=== PATIENT | female | born 1975 | race Caucasian/White ===

== ENCOUNTER 2023-06-29 16:08 | Emergency (ER) | payer OTHER, SELFPAY ==
[2023-06-29 16:12] VITALS: BP 144/116
[2023-06-29 16:43] LABS: % Basophils 0.9 % (0-2); % Eosinophils 3.4 % (0-6); % Immature Granulocytes 0.1 % (0-0.5); % Lymphocytes 35.1 % (20.5-51.1); % Monocytes 7.7 % (1.7-9.3); % Neutrophils 52.8 % (42.2-75.2); Absolute Basophils 0.1 10^3/uL (0-0.2); Absolute Eosinophils 0.3 10^3/uL (0-0.7); Absolute Lymphocytes 2.6 10^3/uL (1.2-3.4); Absolute Monocytes 0.6 10^3/uL (0.1-0.6); Absolute Neutrophils 3.9 10^3/uL (1.4-6.5); Hematocrit 35.7 % (37.0-47.0); Hemoglobin 11.9 g/dL (12.0-16.0); Mean Corp Hgb Conc. 33.3 g/dL (33.0-37.0); Mean Corpuscular Hgb 30.4 pg (27.0-31.0); Mean Corpuscular Volume 91.3 fL (81.0-99.0); Mean Platelet Volume 8.8 fL (7.4-10.4); Nucleated Red Blood Cells % 0 %; Platelet Count 404 10^3/uL (130-400); Red Blood Cell Count 3.91 10^6/uL (4.20-5.40); Red Cell Dist. Width 15.4 % (11.5-14.5); White Blood Cell Count 7.4 10^3/uL (4.8-10.8)
[2023-06-29 16:52] LABS: HCG, Serum Qualitative Screen Negative
[2023-06-29 16:57] LABS: ALT (SGPT) 18 U/L (0-35); AST (SGOT) 27 U/L (14-36); Acetaminophen < 10 ug/ml (10-30); Albumin 4.4 g/dl (3.5-5.0); Alkaline Phosphatase 91 U/L (38-126); Blood Urea Nitrogen 10 mg/dl (7-17); Calcium 10.6 mg/dl (8.4-10.2); Carbon Dioxide 19 mmol/L (22-30); Glucose 88 mg/dl (70-99); Salicylate < 1.0 mg/dl (2.0-20.0); Total Bilirubin 0.3 mg/dl (0.2-1.3); Total Protein 7.1 g/dl (6.3-8.2); eGFR > 60.00
[2023-06-29 17:02] LABS: Chloride 112 mmol/L (98-107); Potassium 4.1 mmol/L (3.5-5.1); Sodium 138 mmol/L (135-145)
== END 2023-06-29 20:52 ==
LOC: EMR 16:08
PROVIDERS: Emergency Medicine
DX: R47.81 Slurred speech (principal); Z53.21 Procedure and treatment not carried out due to patient leaving prior to being seen by health care provider
CPT/HCPCS: 80053; 80143; 80179; 84703; 85025

== ENCOUNTER 2023-06-30 11:02 | Emergency (ER) | payer OTHER, SELFPAY ==
[2023-06-30 11:14] VITALS: BP 156/92
--- NOTE | 2023-06-30 11:40 | EDRN ---
Dr. Vargas in room w/pt at this time.
[2023-06-30] MEDS: ATIVAN 1 MG PO (11:59)
--- NOTE | 2023-06-30 12:15 | ED.GENMED ---
History of Present Illness
General
Chief Complaint: Headache
Source: patient and significant other
Exam Limitations: none
Time Seen by Provider: 06/30/23 11:25
Nursing documentation reviewed up to this point in time: agreed with
Travel History
Have you had any contact with someone who has COVID-19?: No
Do you have any symptoms of coronavirus? Fever > 100 degrees, chills, cough, shortness of breath, sore throat, loss of taste or smell, muscle aches, or headache?: No
History of Present Illness
History of Present Illness:
48 female history of anxiety prior history of substance abuse possible seizure disorder hold on Depakote admittedly noncompliant presents with anxiety, apparently her boyfriend found her on the ground between 2 chairs after presumed fall 2 nights
ago seen here in the ER waiting room last night apparently the wait was long she went home she has a headache she is tearful she feels anxious he is seeing a psychiatrist yamilex Cordova apparently there is some stress between the patient and her mother
who she lives with
Past History
Past History
ED Past Medical History: Valvular disease, Psychiatric (anxiety, ADHD, substance abuse) and Other (Chronic back pain)
ED Past Surgical History: (x2)
Social History
Tobacco: Smoker
Alcohol: None
Drug: None and Other (pt denies)
Personal:
Living: alone
Employment: Employed (dental equal opportunity assistant)
Family History
Family History: Other (reviewed and non-contributory)
Review of Systems
Review of Systems
All Other Systems: Not applicable
Constitutional: Denies fever
EENT: Reports no symptoms
Respiratory: Reports no symptoms
Cardiac: Reports no symptoms
ABD/GI: Reports no symptoms
Neurological: Reports headache
Psychiatric: Reports depression and anxiety; Denies suicidal
Phy Exam
Physical Exam
Physical Exam:
Physical Exam
General: no apparent distress, not acutely ill
Neck: Tearful at times
Heart: s1/s2 regular rate and rhythm, no murmur. equal radial pulses.
Lungs: no acute respiratory distress. clear bilaterally
Abdomen: Not
Neuro: alert and oriented. no focal neurological deficits
Skin: no rash
Psychiatric: Anxious tearful denies suicidal or homicidal thoughts
Extremities: no edema.
Course
Orders/Labs/Results
Orders:
Orders
06/30/23 11:50
Lorazepam [Ativan] 1 mg PO NOW STA
06/30/23 11:51
Crisis Consult Routine
Reason for Consult: anxiety
06/30/23 12:13
CT Cervical Spine W/o Iv Contr Urgent
Comment:
Reason For Exam: fall trauma
CT Head W/o Iv Contrast Urgent
Comment:
Reason For Exam: trauma headache
06/30/23 12:26
Complete Blood Count/With Diff Urgent
Comprehensive Metabolic Panel Urgent
Depakane Urgent
Abnormal Lab Results
06/30/23
12:26
RBC 3.53 L 10^6/uL
(4.20-5.40)
Hgb 10.9 L g/dL
(12.0-16.0)
Hct 32.6 L %
(37.0-47.0)
RDW 15.3 H %
(11.5-14.5)
Plt Count 405 H 10^3/uL
(130-400)
Monocytes % 9.4 H %
(1.7-9.3)
Chloride 111 H mmol/L
(98-107)
Glucose 107 H mg/dl
(70-99)
Calcium 10.3 H mg/dl
(8.4-10.2)
Total Bilirubin 0.1 L mg/dl
(0.2-1.3)
Total Protein 6.1 L g/dl
(6.3-8.2)
Valproic Acid < 10.0 L ug/ml
(50.0-120.0)
06/30/23 12:26
06/30/23 12:26
Vital Signs
Initial and Last Documented VS:
Initial Vital Signs
Temp Pulse Resp BP Pulse Ox
98.1 F 98 16 156/92 99
06/30/23 11:14 06/30/23 11:14 06/30/23 11:14 06/30/23 11:14 06/30/23 11:14
Last Documented Vital Signs
Temp Pulse Resp BP Pulse Ox
98.1 F 85 16 122/63 99
06/30/23 11:14 06/30/23 13:42 06/30/23 13:42 06/30/23 13:42 06/30/23 13:42
MDM/Problems Addressed
Differential Diagnosis Includes:
Intoxication withdrawal, primary psychiatric: Head or neck trauma electrolyte abnormality
MDM/Problems Addressed:
Anxiety fall
Chronic conditions affecting care:
Mental illness seizure disorder chronic pain
Acute Exacerbation and/or Progression of Chronic Illness:
None ordered seizure disorder chronic pain
*Critical Care Note
Total Time (30-74mins, 75-104mins- exclusive of procedures): Not Applicable
Update Note
Update Note:
1:20 PM labs noted imaging is pending, reviewed with crisis, patient recently started [facility] intensive outpatient she will continue that
ED Attending Note
-
Portions of this chart may have been created with voice recognition software.� Occasional wrong word or��sound alike� substitutions may have occurred due to the inherent limitations of voice recognition software.
Discharge Plan
Departure
Patient Disposition: Home (Routine Discharge)
Date of Disposition: 06/30/23
Time of Disposition: 13:19
Patient with high blood pressure during this ER visit?: No
Condition: Good
Discharge Problem:
Fall, Anxiety
Instructions: Generalized anxiety disorder, Preventing falls in adults
Prescriptions:
New
lorazepam [Ativan] 1 mg tablet
1 mg PO BID PRN (Reason: anxiety) Qty: 5 0RF
No Action
paroxetine HCl 20 MG tablet
40 mg PO DAILY
nicotine 14 MG patch 24 hour
14 mg transdermal DAILY 0RF
hydrocodone-acetaminophen 1 TABLET tablet
1 tab PO Q4HPRN PRN (Reason: severe pain) Qty: 20 0RF
valproic acid 250 MG capsule
500 mg PO HS Qty: 30 0RF
rizatriptan 10 MG tablet,disintegrating
10 mg PO DAILY PRN (Reason: headache) Qty: 9 0RF
Referrals:
Mart Maya MD [Family Provider] - Next open appointment
Activity Restrictions/Additional Instructions:
Take your prescribed medications as prescribed, including your Depakote
Follow-up with your primary care provider and your psychiatrist
Interventions
Interventions:
*Risk Screen - Suicide Last Done: 06/30/23 11:14
*General Assessment Last Done: 06/30/23 11:14
*Neglect/Abuse Screening Last Done: 06/30/23 11:14
ED- Fall Risk Assessment Last Done: 06/30/23 12:31
*ED COVID-19 Vaccine History Last Done: 06/30/23 12:31
*Nursing Disposition Last Done: 06/30/23 13:43
ED- Neurological Assessment Last Done: 06/30/23 12:31
Discharge Date and Time
Discharge Date/Time: 06/30/23 13:49
Print Language: GERMAN
[2023-06-30 12:31] VITALS: BP 129/91; BMI 29.9
[2023-06-30 12:33] LABS: % Basophils 1.6 % (0-2); % Eosinophils 4.1 % (0-6); % Immature Granulocytes 0.2 % (0-0.5); % Lymphocytes 34.9 % (20.5-51.1); % Monocytes 9.4 % (1.7-9.3); % Neutrophils 49.8 % (42.2-75.2); Absolute Basophils 0.1 10^3/uL (0-0.2); Absolute Eosinophils 0.2 10^3/uL (0-0.7); Absolute Monocytes 0.5 10^3/uL (0.1-0.6); Absolute Neutrophils 2.8 10^3/uL (1.4-6.5); Hematocrit 32.6 % (37.0-47.0); Hemoglobin 10.9 g/dL (12.0-16.0); Mean Corp Hgb Conc. 33.4 g/dL (33.0-37.0); Mean Corpuscular Hgb 30.9 pg (27.0-31.0); Mean Corpuscular Volume 92.4 fL (81.0-99.0); Mean Platelet Volume 8.8 fL (7.4-10.4); Nucleated Red Blood Cells % 0 %; Platelet Count 405 10^3/uL (130-400); Red Blood Cell Count 3.53 10^6/uL (4.20-5.40); Red Cell Dist. Width 15.3 % (11.5-14.5); White Blood Cell Count 5.6 10^3/uL (4.8-10.8)
[2023-06-30 12:48] LABS: ALT (SGPT) 16 U/L (0-35); AST (SGOT) 22 U/L (14-36); Alkaline Phosphatase 83 U/L (38-126); Blood Urea Nitrogen 14 mg/dl (7-17); Calcium 10.3 mg/dl (8.4-10.2); Chloride 111 mmol/L (98-107); Estimated Creatinine Clearance 83 ml/min; Glucose 107 mg/dl (70-99); Potassium 4.3 mmol/L (3.5-5.1); Sodium 137 mmol/L (135-145); Total Bilirubin 0.1 mg/dl (0.2-1.3); Total Protein 6.1 g/dl (6.3-8.2); eGFR > 60.00
[2023-06-30 13:01] LABS: Albumin 3.7 g/dl (3.5-5.0); Carbon Dioxide 23 mmol/L (22-30)
[2023-06-30 13:06] LABS: Depakane < 10.0 ug/ml (50.0-120.0)
[2023-06-30 13:42] VITALS: BP 122/63
== END 2023-06-30 13:49 | disposition home or self-care (01) ==
LOC: EMR 11:02
PROVIDERS: EMERGENCY PHYSICIAN Emergency Medicine; FAMILY PHYSICIAN Internal Medicine
DX: F41.9 Anxiety disorder, unspecified (principal); W19.XXXA Unspecified fall, initial encounter; I38 Endocarditis, valve unspecified; F90.9 Attention-deficit hyperactivity disorder, unspecified type; F19.10 Other psychoactive substance abuse, uncomplicated; F17.200 Nicotine dependence, unspecified, uncomplicated
CPT/HCPCS: 99284; 70450; 72125; 80053; 80164; 85025